=== PATIENT | female | born 1960 | race Caucasian/White ===

== ENCOUNTER → 2025-01-07 | Outpatient (CLI) | payer BC, SELFPAY ==
[2025-01-07 14:48] LABS: Collection Type, Urine Clean Catch
[2025-01-07 16:57] LABS: Bacteria,Urine 1+; Bilirubin,Urine Negative (Negative); Blood,Urine Trace (Negative); Calcium Oxalate Crystals,Urine 4+; Glucose, Urine Negative (Negative); Hyaline Casts,Urine < 1 /hpf (0-1); Ketones,Urine Negative (Negative); Leukocyte Esterase,Urine Positive (Negative); Nitrite,Urine Negative (Negative); Protein,Urine Negative (Neg - Trace); RBC,Urine 5 /hpf (0-3); Specific Gravity,Urine 1.028 (1.001-1.035); Squamous Epithelial Cell,Urine 1 /hpf (0-5); Urobilinogen,Urine Negative mg/dL (0.0-1.0); WBC,Urine 13 /hpf (0-5)
[2025-01-07 17:02] LABS: Clarity,Urine Turbid (Clear/Hazy); Color,Urine Amber (Lt Yel-Yel)
== END | disposition home or self-care (01) ==
LOC: SLDO 14:39
PROVIDERS: Referring Provider Student in an Organized Health Care Education/Training Program; Visit Provider Student in an Organized Health Care Education/Training Program
DX: N39.0 Urinary tract infection, site not specified (principal)
CPT/HCPCS: 81001; 87086

== ENCOUNTER → 2025-01-13 | Outpatient (CLI) | payer BC, SELFPAY ==
--- NOTE | 2025-01-13 09:15 | XR_ITS ---
Examination: Screening digital mammography, bilateral Computer aided detection 3-D breast Tomosynthesis, bilateral Date and time of exam: January 13, 2025 0905 hours Compared to mammograms dating to November 08, 2018 Indication: Screening Technique: Nonmagnified MLO, CC views of the breasts to been obtained, reconstructed from 3-D Tomosynthesis images. R2 computer aided detection program utilized for evaluation of suspicious masses and/or abnormal calcifications. 3-D Tomosynthesis images obtained. Findings: Scattered areas of fibroglandular density. Benign calcifications. No interval suspicious masses Impression: BI-RADS category II: Benign Findings. Recommend 1 year follow-up mammogram.
== END | disposition home or self-care (01) ==
LOC: CDIM 08:55
PROVIDERS: Referring Provider Student in an Organized Health Care Education/Training Program; Visit Provider Student in an Organized Health Care Education/Training Program
DX: Z12.31 Encounter for screening mammogram for malignant neoplasm of breast (principal); R92.1 Mammographic calcification found on diagnostic imaging of breast
CPT/HCPCS: 77063; 77067

== ENCOUNTER 2025-01-15 07:25 | Day surgery (SDC) | payer BC, SELFPAY ==
[2025-01-14 11:40] VITALS: BMI 35.5
[2025-01-15] VITALS (11 sets, daily range): BP systolic 107–170; BP diastolic 66–102; PULSE 78–93; RESP 12–21; TEMP 36.3–36.9; O2SAT 93–100; BMI 35.9
[2025-01-15] MEDS: DiphenhydrAMINE INJ 50 MG/ML VIAL 25 MG IV (09:51)
[2025-01-15] MEDS: SODIUM CHLORIDE 0.9% 500 ML 500 ML 20 ML IV (09:51)
[2025-01-15] MEDS: LIDOCAINE JELLY 2% (Urojet) 10 ML TUBE TOP (09:51)
[2025-01-15] MEDS: MIDAZOLAM INJ 1 MG/ML VIAL 2 ML (ASD USE ONLY) 2 MG IV (10:00)
[2025-01-15] MEDS: fentaNYL CIT INJ 50 mCg/ML AMP 2ML (ASD USE ONLY) IV (10:06)
== END 2025-01-15 10:58 | disposition home or self-care (01) ==
PROVIDERS: PCP Student in an Organized Health Care Education/Training Program; Referring Provider Specialist; Visit Provider Specialist
PROC: 0DBE8ZX Excision of Large Intestine, Via Natural or Artificial Opening Endoscopic, Diagnostic (ICD-10-PCS; CPT 45380; principal; 2025-01-15 09:00)
DX: Z12.11 Encounter for screening for malignant neoplasm of colon (principal); K64.9 Unspecified hemorrhoids; K57.30 Diverticulosis of large intestine without perforation or abscess without bleeding
CPT/HCPCS: 45378; J1200; J2250; J3010; J7040

== ENCOUNTER 2025-05-22 10:20 | Outpatient (AMB) | payer BC, SELFPAY ==
[2025-05-22 10:46] VITALS: BP 108/74; PULSE 88; RESP 18; TEMP 36.6; O2SAT 98; BMI 32.0
--- NOTE | 2025-05-22 10:46 | ORTHONT_ITS ---
Vital signs 05/22/25 10:46 Height 1.68 m Height Method Measured Weight 90.066 kg Weight Measurement Method Standing Scale BMI 32.0 BP 108/74 Blood Pressure Source Automatic Cuff Blood Pressure Location Left Upper Arm Position Sitting Respiration 18 Pulse 88 Pulse Source Monitor Temp 97.9 F Temp Source Temporal Artery Scan Pulse Oximetry (%) 98 Oxygen Delivery Method Room Air Med/Allergies Allergies & Medications Allergies No Known Drug Allergies Allergy (Verified 05/22/25 10:47) Medication Reconciliation metformin 500 mg tablet 500 mg PO QDAY 01/14/25 [History Confirmed 05/22/25] sumatriptan succinate 100 mg tablet 100 mg PO QDAY PRN migraine headache 01/14/25 [History Confirmed 05/22/25] meloxicam 7.5 mg tablet 7.5 mg PO QDAY #45 tabs 05/22/25 [Rx] Exam Exam Patient is in no acute distress and is cooperative with the examination today. Breathing is nonlabored. Patient has a normal mood and affect. Bilateral extremities were evaluated and demonstrates sensation intact to light touch. Palpable pedal pulses are present. No significant edema is present. Bilateral hips were examined. The patient has no pain with log roll of the hips. Internal rotation to 30 degrees and external rotation to 30 degrees is painless. Negative FADIR. Right knee was examined today. The right knee is in reasonable alignment. Range of motion from 0-120 degrees. Knee is stable to varus and valgus as well as AP translation with <5mm. Patient has a negative McMurrays. There is no pain with patellofemoral compression and no crepitus noted. The knee is nontender to palpation. Left knee was examined today. The left knee is in varus alignment. Range of motion from 0-115 degrees. Knee is stable to varus and valgus as well as AP t ranslation with <5mm. Patient has a negative McMurrays. There is no pain with patellofemoral compression and no crepitus noted. The knee is tender to palpation medially. Assessment and Plan Problem List (1) Arthritis of knee, left: Status: Acute Plan ASSESSMENT AND PLAN 1. Left knee osteoarthritis. Symptoms suggest moderate arthritis without [id number] contact. An X-ray will be ordered to establish a baseline for future reference. A home exercise program will be provided to help manage symptoms. Meloxicam will be prescribed for daily use, but it is not necessary to take it every day. If pain becomes severe or during flare-ups, an injection can be considered. Voltaren cream should be applied three times daily for better efficacy. Follow-up: Follow-up appointment is scheduled for 6 weeks from now. Office Procedures GNS Level of Care Nursing/Assessment Patient Status: Initial/New Patient Nursing Assessment/Reassesment: Medication Reconciliation, Update PMH in EMR and Vital Signs Coordination of Care: Complex Care and Chronic Disease 1-5, Education Complex Pt/Fam, Consent,records obtained, informed consent, Lab and Imaging orders, Results/Orders obtained and Staff clarify orders New Patient Charge New Patient Point Assignment: 4200 New Patient Point Charge: CHIEF ENGINEER'S HELPER Level 3 ([id number]) MA Intake Visit Data Collection New Patient or Established: New Patient (never been to [facility]) Reason for Visit:: LEFT KNEE OSTEOATHRITIS Seen by Clinical Staff ONLY (RN/MA): No Facilities Administrator Required: No PCP or OBGYN visit in last 3 months: Yes Hx Now: No Do You Feel Safe at Home: Yes Authorities Contacted: N/A Questionairres Past Medical History Past Medical History Have you ever been diagnosed with any of the following: Neurological Problems Seizures: No Migraine: Yes Cardiology Problems Congestive Heart Failure: No Respiratory Problems Chronic Obstructive Pulmonary Disease (COPD): No Genital/Urinary Problems Renal Disease: No Musculoskeletal Problems Carpal Tunnel Syndrome: Yes (Right and left trigger thumbs trigger thumb release) Endocrine Problems Diabetes Mellitus Type 1: No Diabetes Mellitus Type 2: Yes Other Problems Blood Transfusions: No Anesthesia Reactions: No Subjective Visit Visit for: new patient and knee Immunization / Flu Flu Vaccine in the Last 12 Months: No Flu Vaccine Exclusion Criteria: Already Received History of Present Illness Chief complaint: LEFT KNEE OSTEOARTHRITIS Date of injury / onset of symptoms: 2 YEARS HISTORY OF PRESENT ILLNESS I, Cesar Crocker, have obtained verbal consent from the patient, to be recorded during this encounter which may include, but not limited to, medical history, examination, treatment plans, and relevant health information.? Patient was informed that recording will be read and reviewed by myself before inclusion in the medical chart. The patient is a 64-year-old female who presents for evaluation of left knee osteoarthritis. She has been experiencing pain in her left knee for the past 2 years. She received an injection from her doctor 2 years ago, which provided relief. However, a subsequent injection a year later did not have the same effect. She has not undergone any recent X-rays, with the last ones being from 2022. She reports that the pain is intermittent and not excruciating, with no specific trigger identified. The pain is not constant and does not occur daily. She has been prescribed ibuprofen 800 mg but does not take it regularly. She also has Voltaren cream at home. She started weight training in 01/2025 and has noticed that certain activities can exacerbate the pain, necessitating modifications. Descending stairs is particularly painful for her. She reports overall good health, with no diabetes or high blood pressure. 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
--- NOTE | 2025-05-22 10:55 | XR_ITS ---
Examination: Bilateral AP knees single view Left knee PA lateral axial 3 views TECHNIQUE: Bilateral AP knees standing single view Left knee PA standing flexion, standing lateral, axial left knee 3 views total 4 views Date and time: May 22, 2025, 10:50 AM INDICATIONS: Left knee pain beginning 2 years ago. FINDINGS: Moderate osteopenia. Mild narrowing medial joint space left knee Mild osteoarthritis left patellofemoral joint No fracture Small left knee effusion IMPRESSION: Osteoarthritis left knee as above
== END 2025-05-22 10:59 | disposition home or self-care (01) ==
LOC: HODSRG 10:20
PROVIDERS: PCP Student in an Organized Health Care Education/Training Program; Referring Provider Student in an Organized Health Care Education/Training Program; Supervising Provider Orthopaedic Surgery Adult Reconstructive Orthopaedic Surgery; Visit Provider Orthopaedic Surgery Adult Reconstructive Orthopaedic Surgery
DX: M17.12 Unilateral primary osteoarthritis, left knee (principal); E11.9 Type 2 diabetes mellitus without complications
CPT/HCPCS: 73564; 99203; G0463

== ENCOUNTER 2025-07-03 13:30 | Outpatient (AMB) | payer BC, SELFPAY ==
--- NOTE | 2025-07-03 13:43 | PD.ORTHCLVIS ---
Vital signs 07/03/25 13:44 Height 1.68 m Height Method Stated Weight 87.175 kg Weight Measurement Method Standing Scale BMI 30.9 BP 105/71 Blood Pressure Source Automatic Cuff Blood Pressure Location Left Upper Arm Position Sitting Respiration 20 Pulse 98 Pulse Source Monitor Temp 97.5 F Temp Source Temporal Artery Scan Pulse Oximetry (%) 94 L Oxygen Delivery Method Room Air Med/Allergies Allergies & Medications Allergies No Known Drug Allergies Allergy (Verified 07/03/25 13:45) Medication Reconciliation metformin 500 mg tablet 500 mg PO QDAY 01/14/25 [History Confirmed 07/03/25] sumatriptan succinate 100 mg tablet 100 mg PO QDAY PRN migraine headache 01/14/25 [History Confirmed 07/03/25] meloxicam 7.5 mg tablet 7.5 mg PO QDAY #45 tabs 05/22/25 [Rx Confirmed 07/03/25] celecoxib 200 mg capsule (Celebrex) 200 mg PO BID #60 caps 07/03/25 [Rx] Exam Exam Patient is in no acute distress and is cooperative with the examination today. Breathing is nonlabored. Patient has a normal mood and affect. Bilateral extremities were evaluated and demonstrates sensation intact to light touch. Palpable pedal pulses are present. No significant edema is present. Bilateral hips were examined. The patient has no pain with log roll of the hips. Internal rotation to 30 degrees and external rotation to 30 degrees is painless. Negative FADIR. Right knee was examined today. The right knee is in reasonable alignment. Range of motion from 0-120 degrees. Knee is stable to varus and valgus as well as AP translation with <5mm. Patient has a negative McMurrays. There is no pain with patellofemoral compression and no crepitus noted. The knee is nontender to palpation. Left knee was examined today. The left knee is in varus alignment. Range of motion from 0-115 degrees. Knee is stable to varus and valgus as well as AP translation with <5mm. Patient has a negative McMurrays. There is no pain with patellofemoral compression and no crepitus noted. The knee is tender to palpation medially. Assessment and Plan Problem List (1) Arthritis of knee, left: Status: Acute Plan ASSESSMENT AND PLAN 1. Left knee osteoarthritis. Symptoms suggest moderate arthritis without [id number] contact. An X-ray will be ordered to establish a baseline for future reference. A home exercise program will be provided to help manage symptoms. Voltaren cream should be applied three times daily for better efficacy. We will try celebrex now. Follow-up: Follow-up appointment as needed Office Procedures GNS Level of Care Nursing/Assessment Patient Status: Established Patient Nursing Assessment/Reassesment: Medication Reconciliation, Update PMH in EMR and Vital Signs Coordination of Care: Complex Care and Chronic Disease 1-5, Education Complex Pt/Fam, Consent,records obtained, informed consent, Results/Orders obtained and Staff clarify orders Established Patient Charge Established Patient Point Assignment: 95 Established Patient Point Charge: Level 3 (80-115) MA Intake Visit Data Collection New Patient or Established: Established Patient (seen at [facility] within 3 years) Reason for Visit:: LEFT KNEE OSTEOATHRITIS Seen by Clinical Staff ONLY (RN/MA): No Park Worker Supervisor Required: No PCP or OBGYN visit in last 3 months: Yes Hx Now: No Do You Feel Safe at Home: Yes Authorities Contacted: N/A Questionairres Past Medical History Past Medical History Have you ever been diagnosed with any of the following: Neurological Problems Seizures: No Migraine: Yes Cardiology Problems Congestive Heart Failure: No Respiratory Problems Chronic Obstructive Pulmonary Disease (COPD): No Genital/Urinary Problems Renal Disease: No Musculoskeletal Problems Carpal Tunnel Syndrome: Yes (Right and left trigger thumbs trigger thumb release) Endocrine Problems Diabetes Mellitus Type 1: No Diabetes Mellitus Type 2: Yes Other Problems Blood Transfusions: No Anesthesia Reactions: No Subjective Visit Visit for: follow up visit, knee and x-rays Immunization / Flu Flu Vaccine in the Last 12 Months: No Flu Vaccine Exclusion Criteria: Already Received History of Present Illness Chief complaint: LEFT KNEE OSTEOARTHRITIS Date of injury / onset of symptoms: 2 YEARS HISTORY OF PRESENT ILLNESS ICesar, have obtained verbal consent from the patient, to be recorded during this encounter which may include, but not limited to, medical history, examination, treatment plans, and relevant health information.? Patient was informed that recording will be read and reviewed by myself before inclusion in the medical chart. The patient is a 64-year-old female who presents for evaluation of left knee osteoarthritis. She has been experiencing pain in her left knee for the past 2 years. She received an injection from her doctor 2 years ago, which provided relief. However, a subsequent injection a year later did not have the same effect. She has not undergone any recent X-rays, with the last ones being from 2022. She reports that the pain is intermittent and not excruciating, with no specific trigger identified. The pain is not constant and does not occur daily. She has been prescribed ibuprofen 800 mg but does not take it regularly. She also has Voltaren cream at home. She started weight training in 01/2025 and has noticed that certain activities can exacerbate the pain, necessitating modifications. Descending stairs is particularly painful for her. She reports overall good health, with no diabetes or high blood pressure. 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
[2025-07-03 13:44] VITALS: BP 105/71; PULSE 98; RESP 20; TEMP 36.4; O2SAT 94; BMI 30.9
== END 2025-07-03 14:00 | disposition home or self-care (01) ==
LOC: HODSRG 13:30
PROVIDERS: PCP Student in an Organized Health Care Education/Training Program; Referring Provider Student in an Organized Health Care Education/Training Program; Supervising Provider Orthopaedic Surgery Adult Reconstructive Orthopaedic Surgery; Visit Provider Orthopaedic Surgery Adult Reconstructive Orthopaedic Surgery
DX: M17.12 Unilateral primary osteoarthritis, left knee (principal); E11.9 Type 2 diabetes mellitus without complications; Z79.84 Long term (current) use of oral hypoglycemic drugs
CPT/HCPCS: 99213; G0463